=== PATIENT | female | born 2000 | race Caucasian/White ===

== ENCOUNTER 2024-07-01 20:03 | Emergency (ER) | payer OTHER, SELFPAY ==
[2024-07-01 20:06] VITALS: BP 111/73; BMI 28.5
[2024-07-01 20:22] LABS: % Basophils 0.2 % (0-2); % Eosinophils 1.2 % (0-6); % Immature Granulocytes 0.6 % (0-0.5); % Lymphocytes 34.1 % (20.5-51.1); % Monocytes 3.3 % (1.7-9.3); % Neutrophils 60.6 % (42.2-75.2); Absolute Eosinophils 0.1 10^3/uL (0-0.7); Absolute Immature Granulocytes 0.1 10^3/uL (0-0.05); Absolute Lymphocytes 4.1 10^3/uL (1.2-3.4); Absolute Monocytes 0.4 10^3/uL (0.1-0.6); Absolute Neutrophils 7.3 10^3/uL (1.4-6.5); Hemoglobin 13.8 g/dL (12.0-16.0); Mean Corp Hgb Conc. 35.4 g/dL (33.0-37.0); Mean Corpuscular Hgb 29.7 pg (27.0-31.0); Mean Corpuscular Volume 84.1 fL (81.0-99.0); Mean Platelet Volume 10.2 fL (7.4-10.4); Nucleated Red Blood Cells % 0 %; Platelet Count 402 10^3/uL (130-400); Red Blood Cell Count 4.64 10^6/uL (4.20-5.40)
[2024-07-01] MEDS: NSS 500 IV (20:56)
--- NOTE | 2024-07-01 21:34 | ED.GENMED ---
History of Present Illness
General
Chief Complaint: Abdominal Pain
Source: patient
Exam Limitations: none
Time Seen by Provider: 07/01/24 21:05
History of Present Illness
History of Present Illness:
This is a 24 year old female that comes in with c/o syncope. States that she was on the Toilet and she had diarrhea. States that she was having cramping and nausea. states that she texted him at 7:06 and he was outside working on her car.
States that he went into the house and she was passed out with her head on the shower door. State that she has had chills since she is here, has nausea. States that she is still having cramping. Denies any fever, chest pain, SOB, vomiting, headache,
dizziness, urinary burning.
Past History
Past History
ED Past Medical History: Asthma and Other (IBS); Negative HTN, Hypercholesterolemia or NIDDM
Social History
Tobacco: Non-smoker
Alcohol: Occasional
Personal:
Living: with family
Review of Systems
Review of Systems
All Other Systems: ROS reviewed and negative except as documented in HPI and ROS
Constitutional: Reports chills; Denies fever
EENT: Reports no symptoms
Respiratory: Reports no symptoms; Denies cough or trouble breathing
Cardiac: Reports no symptoms; Denies chest pain
ABD/GI: Reports abdominal pain, nausea and diarrhea; Denies vomiting
: Reports no symptoms; Denies dysuria, frequency or urgency
Musculoskeletal: Reports no symptoms
Skin: Reports no symptoms
Neurological: Reports no symptoms; Denies dizzy or headache
Psychiatric: Reports no symptoms
Phy Exam
General Physical Exam
General Presentation: mild distress
General age: appears stated age
General Skin: warm and dry
General Habitus: normal
General Mental: alert
General Hydration: appears well hydrated
ENT Exam
ENT Exam: TM's normal, pharynx normal and neck supple
Eye Exam
Eye Exam: EOMI
Cardiovascular Exam
Cardiovascular Exam: regular rate/rhythm, no edema, no murmur and normal peripheral pulses
Pulmonary Exam
Pulmonary Exam: lungs clear, no respiratory distress, no rales, chest non tender, no crackles, no rhonchi, no wheezing and no cough
Gastrointestinal Exam
Gastrointestinal Exam: normal bowel sounds, soft, no organomegaly, no pulsatile mass, non distended and tender (Generalized tenderness with palpation)
Musculoskeletal Exam
Musculoskeletal Exam: full ROM and no edema
Skin Exam
Skin Exam: normal color, warm/dry, no rash and no petechia
Psychiatric Exam
Psychiatric Exam: normal mood/affect
Course
Orders/Labs/Results
Orders:
Orders
07/01/24 20:05
Electrocardiogram (*1) Urgent
Reason for Study: Abdominal Pain
EKG- Treatment ONCE
IV Insert/Care/Rem.- Treatment PRN
Test Result ONCE
07/01/24 20:14
Complete Blood Count/With Diff Urgent
07/01/24 20:56
0.9% Sodium Chloride 500 ml [Nss] 500 ml IV BOLUS
07/01/24 20:57
Comprehensive Metabolic Panel Urgent
HCG, Serum Qualitative Screen Urgent
Lipase Urgent
07/01/24 21:33
CT Abd/pelvis W Iv Cont Urgent
Comment:
Reason For Exam: Generalized abd pain
Dicyclomine [Bentyl] 10 mg PO NOW STA
Ketorolac [Toradol] 30 mg IV NOW STA
07/01/24 21:36
Urinalysis Reflex To Culture Urgent
Date Specimen was Collected: 07/01/24
Time Specimen was Collected: 21:39
07/01/24 21:37
Orthostatic VS- Treatment ONCE
Abnormal Lab Results
07/01/24 07/01/24
20:14 20:57
WBC 12.0 H 10^3/uL
(4.8-10.8)
Plt Count 402 H 10^3/uL
(130-400)
Abs Immat Gran (auto) 0.1 H 10^3/uL
(0-0.05)
Absolute Neuts (auto) 7.3 H 10^3/uL
(1.4-6.5)
Absolute Lymphs (auto) 4.1 H 10^3/uL
(1.2-3.4)
Immature Gran % 0.6 H %
(0-0.5)
Carbon Dioxide 21 L mmol/L
(22-30)
BUN 19 H mg/dl
(7-17)
Creatinine 1.1 H mg/dL
(0.6-1.0)
Glucose 140 H mg/dl
(70-99)
07/01/24 20:14
07/01/24 20:57
Leukocytosis, Plt very slightly elevated. Dehydration. Hyperglycemia. Lipase normal at 106, HCG negative.
Vital Signs
Initial and Last Documented VS:
Initial Vital Signs
Temp Pulse Resp BP Pulse Ox
98.0 F 76 15 111/73 98
07/01/24 20:06 07/01/24 20:06 07/01/24 20:06 07/01/24 20:06 07/01/24 20:06
Last Documented Vital Signs
Temp Pulse Resp BP Pulse Ox
98.0 F 76 15 111/73 98
07/01/24 20:06 07/01/24 20:06 07/01/24 20:06 07/01/24 20:06 07/01/24 20:06
MDM/Problems Addressed
Differential Diagnosis Includes:
Viral syndrome. Enteritis,
MDM/Problems Addressed:
This is a 24 year old female that comes in with c/o syncope and abd pain. States that she had diarrhea and she must have passed out as her found her leaning up against the shower door.
Will check labs. CT abd, IV fluids and medicate for pain and cramping.
Back into see patient. States that she is feeling better. Explained that her blood work shows that her WBC are slightly elevated. Her CT shows that this is most likely Enteritis. This is a viral illness and will go away on its own. Patient to
increase her water intake to 8-8oz glasses daily. Follow up with the family doctor. Return with any concerns.
Chronic conditions affecting care:
IBS
Acute Exacerbation and/or Progression of Chronic Illness:
NA
*Radiology
Radiology exam reviewed: radiology read reviewed (CT-In the central and right side of the mid to lower bdomen, slightly prominent small bowel loops, measuring up to 2.3ceners in diamter. Suggestion of mild thickening of the folds of the small bowel
loops. Findings suggest the possibility or enteritis, and please correlate clinically. NO evidenc ) and other (CT cont -for bowel obstruction or free intraperitoneal air. No significant free pelvic fluid. The appendix appears normal. )
*Pulse Oximetry
Patient hypoxic: no
*EKG
Interpreted by ED Provider?: Yes
Heart Rate: 77
Rate: normal
Rhythm: sinus
Dittmer: normal axis
Interval: normal interval
QRS Pattern: normal QRS
Ischemia: no ischemia
*[employer] Team Member Interpretation
Rate: normal
Heart Rate: 86
Rhythm: sinus
*Critical Care Note
Total Time (30-74mins, 75-104mins- exclusive of procedures): Not Applicable
ED Attending Note
-
Portions of this chart may have been created with voice recognition software.� Occasional wrong word or��sound alike� substitutions may have occurred due to the inherent limitations of voice recognition software.
Discharge Plan
Departure
Patient Disposition: Home (Routine Discharge)
Date of Disposition: 07/01/24
Time of Disposition: 23:18
Patient with high blood pressure during this ER visit?: No
Condition: Good
Covid-19: Not Applicable
Discharge Problem:
Enteritis, Abdominal pain, Syncope
Instructions: Syncope (Fainting) (DC), Abdominal Pain
Referrals:
Mohinder Granados, DO [Family Provider] - Follow up in 5-7 days
Activity Restrictions/Additional Instructions:
As discussed, your blood work shows that your white blood cell count is slightly elevated and that you are a little Dehydrated. Please increase your water intake to 8-8oz glasses daily. You may use Tylenol or Ibuprofen for pain. This will go away on
its own just like it came. Follow up with the family doctor in the next 5-7 days as needed. IF YOU HAVE INCREASED OR CHANGING PAIN, FEVER, OR ANY OTHER CONCERNS PLEASE RETURN TO THE EMERGENCY ROOM.
Interventions
Interventions:
*Risk Screen - Suicide Last Done: 07/01/24 20:06
*General Assessment Last Done: 07/01/24 20:06
*Neglect/Abuse Screening Last Done: 07/01/24 20:06
ED- Fall Risk Assessment Last Done: 07/01/24 21:24
*ED COVID-19 Vaccine History Last Done: 07/01/24 20:06
HB-Mrfakz-Huavfyeims Assessment Last Done: 07/01/24 21:24
Discharge Date and Time
Print Language: [place]
[2024-07-01 21:35] LABS: ALT (SGPT) 18 U/L (0-35); AST (SGOT) 24 U/L (14-36); Albumin 4.3 g/dl (3.5-5.0); Alkaline Phosphatase 67 U/L (38-126); Blood Urea Nitrogen 19 mg/dl (7-17); Calcium 9.6 mg/dl (8.4-10.2); Carbon Dioxide 21 mmol/L (22-30); Chloride 100 mmol/L (98-107); Estimated Creatinine Clearance 89 ml/min; Glucose 140 mg/dl (70-99); Lipase 106 U/L (23-300); Potassium 3.5 mmol/L (3.5-5.1); Sodium 137 mmol/L (135-145); Total Bilirubin 0.3 mg/dl (0.2-1.3); Total Protein 6.9 g/dl (6.3-8.2); eGFR > 60.00
[2024-07-01 21:46] LABS: HCG, Serum Qualitative Screen Negative
[2024-07-01] MEDS: BENTYL 10 MG PO (21:51)
[2024-07-01] MEDS: TORADOL 30 MG IV (21:51)
[2024-07-01 22:37] VITALS: BP 102/66; BP 107/72; BP 114/79; PULSE 85; PULSE 87; PULSE 91
== END 2024-07-01 23:33 | disposition home or self-care (01) ==
LOC: EMR 20:03
PROVIDERS: Emergency Medicine; EMERGENCY PHYSICIAN Emergency Medicine; FAMILY PHYSICIAN Family Medicine
DX: K52.9 Noninfective gastroenteritis and colitis, unspecified (principal); R10.9 Unspecified abdominal pain; R55 Syncope and collapse
CPT/HCPCS: 99285; 96374; 96361; 74177; 80053; 83690; 84703; 85025; 93005; Q9967